=== PATIENT | male | born 1965 | race Caucasian/White ===

== ENCOUNTER → 2019-01-18 05:53 | Day surgery (SDC) | payer BC ==
--- NOTE | 2018-12-21 18:38 | HP ---
CC: Dr. Stern, [facility]* ADMISSION HISTORY AND PHYSICAL: DATE OF ADMISSION: 01/18/19 ATTENDING SURGEON: Dr. Abel Goins* (dictated by ANGEL Senior). CHIEF COMPLAINT: Bilateral inguinal hernias; umbilical hernia. HISTORY OF PRESENT ILLNESS: This is a 53-year-old male who underwent prior umbilical herniorrhaphy in 2005 (he is pretty certain that it was a primary repair without mesh), who in the last 3 months or so has noted an umbilical bulge which has been minimally symptomatic. In addition, he noted a new bulge about 2 months ago in the right inguinal region that he thought seemed like a "third testicle." He has not had any significant symptoms in terms of pain, nausea, vomiting, or change in bowel or bladder habits. He was seen by his primary care provider, Dr. Stern, who diagnosed a right inguinal hernia and thought that there might be a varicocele present as well. An ultrasound was apparently ordered, though I am not sure if that was performed. The patient was seen in the office by Dr. Goins on 11/11/18, at which time exam confirmed the presence of an incisional hernia at the umbilicus as well as bilateral inguinal hernias, right greater than left. These were all reducible and nontender. Dr. Goins has discussed with him the indications for repair, the methods thereof, the risks, benefits, and alternatives. The patient would like to proceed as scheduled with robotic repair of bilateral inguinal hernias and repair of umbilical hernia. PAST MEDICAL HISTORY: Unremarkable for any chronic or significant past medical problems including cardiovascular disease, diabetes, or malignancy. He has no personal history of bleeding or clotting disorders. PAST SURGICAL HISTORY: His only prior surgery is an umbilical hernia repair in 2005. CURRENT MEDICATIONS: None (Ventolin is listed under his meds, but I did not ask him about that specifically). DRUG ALLERGIES: None. FAMILY HISTORY: Negative for anesthesia problems, bleeding or clotting disorders. SOCIAL HISTORY: The patient is . He is self-employed working with [employer] , [employer], and [employer]. He has continued to work to the present time. He denies use of tobacco and drinks on average less than 1 drink per day. He denies any other recreational drug use. REVIEW OF SYSTEMS: General: No recent constitutional symptoms or acute illnesses. His weight has been stable. HEENT: No problems reported. Cardiovascular: No chest pain, palpitations, history of hypertension, or heart murmur. Respiratory: No chronic cough or shortness of breath. GI: No problems reported. Colonoscopy done recently by Dr. Goins on 12/08/18. He did remove a tubular adenoma at 50 cm. Exam was otherwise unremarkable. : No problems reported. Endocrine: No diabetes or thyroid dysfunction. PHYSICAL EXAMINATION GENERAL: Well-nourished, well-developed male, in no acute distress. VITAL SIGNS: Height 66 inches, weight 190 pounds. Blood pressure 138/84, pulse 72, respirations 12. HEENT: Pupils are equal, round, and reactive. EOMs intact. No conjunctival pallor. Oropharynx: He has dentures. No intraoral lesions. Mucous membranes moist. NECK: No lymphadenopathy, thyromegaly, or masses. LUNGS: Clear to auscultation. No rales or wheezes. HEART: Regular rate and rhythm. No murmur noted. ABDOMEN: Hernias as noted above per Dr. Goins. No other masses on exam. No palpable organomegaly. GENITALIA: Not repeated today. RECTAL: Not done. BACK: No spinous process or CVA tenderness. EXTREMITIES: No edema. NEUROLOGICAL: Grossly intact. SKIN: Warm and dry. No suspicious rashes or lesions. IMPRESSION: Bilateral inguinal hernias; recurrent umbilical hernia. PLAN: Robotic repair of bilateral inguinal hernias; repair of umbilical hernia. ANGEL SENIOR [id number]/[facility] #: [id number] [facility] CENTERAng
[~2019-01-18 05:53] MED LIST: Buffered Lidocaine 1% SYRIN* 1 ML/SYRINGE INTRADERM ONE; Bupivacaine 0.5%* 50 ML MDV VIAL ONE; Dexamethasone TAB* 4 MG ONE; Dexamethasone TAB* 4 MG PO ONE; DiMENhydriNATE IV* 50 MG/ML VIAL IV PUSH PRN; Famotidine IV* 10 MG/ML 2 ML (20 mg) IV ONE; Famotidine IV* 10 MG/ML 2 ML (20 mg) ONE; HYDROmorphone INJ1* 1 MG/ML SYRINGE IV PRN; KETAMINE HCL* 50 MG/ML 10 ML VIAL ONE; Ketorolac INJ* 30 MG/ML 1 ML VIAL ONE; Labetalol IV* 5 MG/ML 20 ML VIAL ONE; Lactated Ringers 1000 ML Bag* 1,000 ML IV SCH; Lidocaine 2% PF * 5 ML VIAL ONE; Midazolam* 1 MG/ML 5 ML VIAL (5 MG) ONE; Naloxone* 0.4 MG/ML 1 ML VIAL IV PRN; Ondansetron ODT TAB* 4 MG ONE; Ondansetron ODT TAB* 4 MG PO ONE; PROCHLORPERAZINE INJ 5 MG/ML 2 ML VIAL IV PRN; Phenylephrine 40 MCG/ML SYRINGE ONE; Propofol* 10 MG/ML 20 ML BTL ONE; Rocuronium* 10 MG/ML VIAL ONE; Scopolamine 1.5 mg* PATCH TRANSDERM PRN; Scopolamine PATCH Remove* 1 NOTE MISC PATCH OFF ONE; Sugammadex * 500 MG/5 ML VIAL IV PUSH ONE; ceFAZolin 2 GM in NS PREMIX(*) 2 GM/100 ML BAG IVPB ONE; fentaNYL* 50 MCG/ML 2 ML VIAL (100 MCG VIAL) IV PRN; fentaNYL* 50 MCG/ML 2 ML VIAL (100 MCG VIAL) ONE; oxyCODONE/Acetamin 5/325 MG* TAB ONE; oxyCODONE/Acetamin 5/325 MG* TAB PO PRN
[2019-01-18 10:46] VITALS: BP 156/88
--- NOTE | 2019-01-18 16:08 | OP ---
DATE OF OPERATION: 01/18/19 [facility] DATE OF : 61 ATTENDING SURGEON: Abel Goins MD SENIOR MEDIA BUYER: JEFF Bautista PRE-OP DIAGNOSES: Bilateral inguinal hernia, umbilical hernia. POST-OP DIAGNOSES: Bilateral inguinal hernia, umbilical hernia, moderate size ventral hernia. OPERATIVE PROCEDURE: Robotic repair of bilateral inguinal hernia and the take down of incarcerated omentum and adhesions to umbilical and ventral hernia. INDICATIONS FOR PROCEDURE: Multiple hernias. Risks included but not limited to bleeding, infection, injury to intraabdominal contents including the bowel, pelvic nerves and vessels, recurrence of the hernia were explained to the patient, who seemed to understand and agreed to the procedure and all questions were answered. DESCRIPTION OF PROCEDURE: The patient was taken to the operating room and placed supine. Preoperative antibiotics were given. After successful induction of general endotracheal anesthesia, the abdomen was prepped and draped in a sterile fashion. Time-out was performed, indicating correct patient and correct procedure. A 5 mm Optiview trocar was placed in the left upper quadrant under direct visualization of the camera using a bladeless Optiview trocar. Pneumoperitoneum was achieved to 12 mmHg. Camera was placed in the abdomen and the abdomen was scanned. There was no obvious injury from trocar placement appeared. An 8-mm robotic midline trocar was placed and an 8- mm robotic right upper quadrant trocar was placed. The 5-mm trocar was then replaced with an 8-mm robotic trocar, all under direct visualization with camera. The patient was placed in the slight Trendelenburg position. The robot was brought in and docked. Camera was placed in the abdomen and the abdomen was scanned. Adhesions were noted in the anterior abdominal wall on two separate areas, one at the umbilicus and two in between the umbilicus and xiphoid. Two inguinal hernias were noted. Two pieces of mesh, left and right ProGrip anatomical mesh were passed along with two sutures. Robot was brought in and docked. Adhesions were taken down revealing the umbilical hernia as well as moderate sized ventral hernia, which was not noted prior to surgery. Plan changed to perform both inguinal hernias and repair ventral and umbilical hernia at a later time. The right side was approached first. Peritoneum was taken down in the right pelvis exposing the large direct hernia. Hernia sac was gently dissected free from the surrounding tissue. Small cord lipoma was gently dissected free from the cord on the right. The right side anatomical mesh was then placed over the defect/pelvis covering the femoral direct and indirect spaces. The peritoneum was closed using a running 2-0 V-lock stitch. EBL minimal for this portion of the procedure. The left side was then approached. The peritoneum was taken down, again a very large direct hernia was noted and gently dissected free from the surrounding tissue. The cord lipoma was removed from the cord and anatomical left- sided ProGrip mesh was placed over the pelvis covering the femoral direct and indirect spaces. The peritoneum was then sutured closed with a running V-lock stitch. The abdomen was scanned and there was no evidence of injury. He tolerated the procedure well and he was extubated and taken to recovery room in stable condition. [id number]/[facility] #: [id number] [place]
== END | disposition home or self-care (01) ==
LOC: OR 05:53
PROVIDERS: ATTEND Surgery
DX: K40.20 Bilateral inguinal hernia, without obstruction or gangrene, not specified as recurrent (principal); K43.9 Ventral hernia without obstruction or gangrene; K42.9 Umbilical hernia without obstruction or gangrene
CPT/HCPCS: 49650; S2900; A9270-GY; C1781; J0690; J1885; J2250; J2704; J3010; J3490; J8540

== ENCOUNTER 2019-06-14 10:43 | Day surgery (SDC) | payer BC ==
[~2019-06-14 10:43] MED LIST changes: -Bupivacaine 0.5%* 50 ML MDV VIAL ONE; -Dexamethasone TAB* 4 MG ONE; -Dexamethasone TAB* 4 MG PO ONE; -DiMENhydriNATE IV* 50 MG/ML VIAL IV PUSH PRN; -Famotidine IV* 10 MG/ML 2 ML (20 mg) IV ONE; -Famotidine IV* 10 MG/ML 2 ML (20 mg) ONE; -HYDROmorphone INJ1* 1 MG/ML SYRINGE IV PRN; -KETAMINE HCL* 50 MG/ML 10 ML VIAL ONE; -Ketorolac INJ* 30 MG/ML 1 ML VIAL ONE; -Labetalol IV* 5 MG/ML 20 ML VIAL ONE; -Lidocaine 2% PF * 5 ML VIAL ONE; -Midazolam* 1 MG/ML 5 ML VIAL (5 MG) ONE; +Ondansetron INJ* 2 MG/ML VIAL IV PRN; -Ondansetron ODT TAB* 4 MG ONE; -Ondansetron ODT TAB* 4 MG PO ONE; -PROCHLORPERAZINE INJ 5 MG/ML 2 ML VIAL IV PRN; -Phenylephrine 40 MCG/ML SYRINGE ONE; -Propofol* 10 MG/ML 20 ML BTL ONE; -Rocuronium* 10 MG/ML VIAL ONE; -Scopolamine 1.5 mg* PATCH TRANSDERM PRN; -Scopolamine PATCH Remove* 1 NOTE MISC PATCH OFF ONE; -Sugammadex * 500 MG/5 ML VIAL IV PUSH ONE; -ceFAZolin 2 GM in NS PREMIX(*) 2 GM/100 ML BAG IVPB ONE; -fentaNYL* 50 MCG/ML 2 ML VIAL (100 MCG VIAL) IV PRN; -fentaNYL* 50 MCG/ML 2 ML VIAL (100 MCG VIAL) ONE; -oxyCODONE/Acetamin 5/325 MG* TAB ONE; -oxyCODONE/Acetamin 5/325 MG* TAB PO PRN
[2019-06-14] MEDS ORDERED: Buffered Lidocaine 1% SYRIN* 1 ML/SYRINGE INTRADERM ONE (11:13)
[2019-06-14] MEDS ORDERED: ceFAZolin 2 GM PREMIX in ORs 2 GM/50 ML BAG ONE (11:13)
[2019-06-14] MEDS ORDERED: Bupivacaine 0.25% SDV* 30 ML ONE ×2 (12:16→12:21)
[2019-06-14] MEDS ORDERED: Propofol* 10 MG/ML 20 ML BTL ONE (12:20)
[2019-06-14] MEDS ORDERED: Rocuronium* 10 MG/ML VIAL ONE (12:21)
[2019-06-14] MEDS ORDERED: HYDROmorphone INJ1* 1 MG/ML SYRINGE ONE ×2 (12:21→14:07)
[2019-06-14] MEDS ORDERED: Dexamethasone IV* 4 MG/ML 1 ML (4 MG) ONE (13:24)
[2019-06-14] MEDS ORDERED: Ketorolac INJ* 30 MG/ML 1 ML VIAL ONE (13:24)
[2019-06-14] MEDS ORDERED: Sugammadex * 500 MG/5 ML VIAL IV PUSH ONE (13:37)
[2019-06-14] MEDS: HYDROmorphone INJ1* 1 MG/ML SYRINGE IV PRN ×2 (14:11→14:20)
[2019-06-14 14:37] VITALS: BP 171/93
--- NOTE | 2019-06-15 00:41 | OP ---
DATE OF OPERATION: 06/14/19 [facility] DATE OF : 61 SURGEON: Abel Goins MD FIRE REGULATOR: FLAQUITA Dupree PRE-OP DIAGNOSIS: Incisional hernias, ventral. POST-OP DIAGNOSIS: Incisional hernias, ventral. OPERATIVE PROCEDURE: Repair of ventral incisional hernias with mesh. INDICATIONS FOR PROCEDURE: Ventral hernias. Risks included, but not limited to bleeding, infection, injury to intraabdominal contents including the bowel were explained to the patient, who seemed to understand and agreed to the procedure and all questions were answered. DESCRIPTION OF PROCEDURE: The patient was taken to the operating room and placed supine. Preoperative antibiotics had been given. After the successful induction of general endotracheal anesthesia, the abdomen was prepped and draped in sterile fashion. A left upper quadrant trocar was placed under direct visualization of the camera using a bladeless Optiview trocar. Pneumoperitoneum was achieved to 12 mmHg. A camera was placed in the abdomen. The abdomen was scanned. There was no obvious injury from trocar placement. An 8-mm trocar was placed in the left lateral position in the left lower quadrant. The 5-mm trocar was replaced with an 8-mm trocar. Robot was brought in and docked just after mesh and sutures were brought into the abdomen under direct visualization of the camera. Significant adhesions were noted to the anterior abdominal wall of the omentum and these were taken down using cautery with scissors. No bowel was stuck to the anterior abdominal wall. Multiloculated hernias were noted, larger hernia more cephalad and a small bilobed hernia near the umbilicus just below this. Using scissors with cautery, the hernia sacs were excised from the defects. The defects were then closed using a running 0 PDS suture. The mesh was then tacked to the anterior abdominal wall covering all the defects and sutured in place with running 2-0 and 3-0 V-Loc sutures. All the needles were removed from the abdomen. The omentum was gently placed over the bowel. The abdomen was scanned. There was no obvious injury noted. Pneumoperitoneum was released from the abdomen. Trocars were removed. Skin was closed with Monocryl and glue. The patient tolerated the procedure well. EBL minimal. He was extubated and taken to Recovery in stable condition. [id number]/[facility] #: [id number] [facility]OS[facility]ITALAng
== END 2019-06-14 15:18 | disposition home or self-care (01) ==
LOC: OR 10:43
PROVIDERS: ATTEND Surgery
DX: K43.2 Incisional hernia without obstruction or gangrene (principal); Z87.891 Personal history of nicotine dependence
CPT/HCPCS: C1781; J0690; J1100; J1170; J1885; J2704; J3490